=== PATIENT | female | born 2000 | race African-American/Black ===

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

== ENCOUNTER 2022-01-24 09:12 | Emergency (ER) | payer MEDICAID, OTHER ==
[~2022-01-24] VITALS: Ht 170.2 cm; Wt 77.0 kg
[~2022-01-24 09:12] MED LIST: IBUP-2028 MT
[2022-01-24 09:52] LABS: BASOPHILS % 0.7 % (0.0-2.0); EOSINOPHILS % 0.1 % (0.0-5.0); HEMATOCRIT. 34.2 % (36.0-48.0); HEMOGLOBIN. 10.8 g/dL (12.0-16.0); LYMPHOCYTES % 25.3 % (20.0-50.0); MEAN CORPUSCULAR HEMOGLOBIN 23.2 pg (28.0-32.0); MEAN CORPUSCULAR VOLUME 73.3 fL (81.0-99.0); MEAN PLATELET VOLUME 7.1 fl (7.4-10.4); MONOCYTES % 6.4 % (2.0-8.0); NEUTROPHILS % 67.5 % (40.0-76.0); PLATELET 386 x1000/uL (130-400); RED BLOOD CELL COUNT 4.67 mill/uL (4.2-5.4); RED CELL DISTRIBUTION WIDTH 16.6 % (11.6-14.6)
[2022-01-24 09:54] LABS: CHLORIDE 106 mEq/L (98-107)
[2022-01-24 10:01] LABS: ETHANOL BLOOD < 10 mg/dL
[2022-01-24 10:20] LABS: CLARITY URINE CLEAR (CLEAR); COLOR URINE YELLOW (YELLOW); KETONES URINE NEGATIVE (NEGATIVE); LEUKOCYTE ESTERASE URINE NEGATIVE (NEGATIVE); NITRITE URINE NEGATIVE (NEGATIVE); OCCULT BLOOD URINE NEGATIVE (NEGATIVE); PH URINE 7.5 (4.5-8.0); PROTEIN URINE NEGATIVE (NEGATIVE); SPECIFIC GRAVITY URINE 1.009 (1.005-1.030); UROBILINOGEN URINE 0.2 E.U./dL (0.2-1.0)
[2022-01-24 10:22] LABS: HCG SCREEN NEGATIVE
[2022-01-24 10:31] LABS: *AMPHETAMINES SCREEN URINE NEGATIVE (NEGATIVE); *BARBITURATES SCREEN URINE NEGATIVE (NEGATIVE); *BENZODIAZEPINES SCREEN URINE NEGATIVE (NEGATIVE); *COCAINE SCREEN URINE NEGATIVE (NEGATIVE); CANNABINOID URINE SCREEN NEGATIVE (NEGATIVE); METHADONE URINE SCREEN NEGATIVE (NEGATIVE); OPIATES URINE SCREEN NEGATIVE (NEGATIVE); PHENCYCLIDINE URINE SCREEN NEGATIVE (NEGATIVE)
[2022-01-24 11:30] VITALS: BP 127/84
== END 2022-01-24 11:32 | disposition home or self-care (01) ==
LOC: ER 09:12
DX: F41.0 Panic disorder [episodic paroxysmal anxiety] (principal); F17.210 Nicotine dependence, cigarettes, uncomplicated; Z71.6 Tobacco abuse counseling
CPT/HCPCS: 36415; 80053; 80305; 80320; 81003; 81025; 84703; 85025; 99284; 99406; G0480

== ENCOUNTER 2023-10-02 21:18 | Emergency (ER) | payer OTHER ==
[~2023-10-02] VITALS: Ht 170.2 cm; Wt 100.0 kg
[2023-10-02 21:27] VITALS: BP 135/89; PULSE 92; RESP 12; TEMP 98.4; O2SAT 100
[2023-10-02] MEDS ORDERED: IBUPROFEN 600MG TABLET PO STA (22:19)
[2023-10-02] MEDS ORDERED: IBUPROFEN 600MG TABLET PO NR (23:45)
== END 2023-10-03 01:48 | disposition home or self-care (01) ==
LOC: ER 21:18
DX: R07.89 Other chest pain (principal)
CPT/HCPCS: 71045; 93005; 99283

== ENCOUNTER 2024-03-09 01:05 | Emergency (ER) | payer SELFPAY ==
[~2024-03-09] VITALS: Ht 167.6 cm; Wt 84.0 kg
[2024-03-09 01:13] VITALS: TEMP 98; O2SAT 99
[2024-03-09] MEDS ORDERED: HYDROCODONE/ACETAMINOPHEN 5/325MG TABLET PO ONE (01:15)
[2024-03-09] MEDS ORDERED: IBUP-2029 MT (03:30)
[2024-03-09 04:01] VITALS: BP 142/90; PULSE 96; RESP 18
[2024-03-09] MEDS: HYDROCODONE/ACETAMINOPHEN 5/325MG TABLET PO NR (04:01)
== END 2024-03-09 04:02 | disposition home or self-care (01) ==
LOC: ER 01:05
DX: M25.511 Pain in right shoulder (principal)
CPT/HCPCS: 73030; 99283; A4565

== ENCOUNTER 2024-08-06 17:20 | Emergency (ER) | payer SELFPAY ==
[~2024-08-06] VITALS: Ht 170.2 cm; Wt 95.0 kg
[~2024-08-06 17:20] MED LIST changes: +IBUP-2029 MT
[2024-08-06 17:22] VITALS: O2SAT 99
[2024-08-06 17:39] VITALS: BP 148/94; PULSE 88; RESP 16; TEMP 37.1; O2SAT 100
[2024-08-06] MEDS: ACETAMINOPHEN 325MG TABLET PO ONE (18:00)
[2024-08-06] MEDS: METOCLOPRAMIDE HCL 10MG TABLET PO ONE (18:00)
[2024-08-06] MEDS ORDERED: NAPR220C61 MT (19:38)
== END 2024-08-06 19:56 | disposition home or self-care (01) ==
LOC: ER 17:20
DX: R51.9 Headache, unspecified (principal); Z79.899 Other long term (current) drug therapy
CPT/HCPCS: 99284; 70450; 81025; J8597